=== PATIENT | male | born 1995 | race African-American/Black ===

== ENCOUNTER 2018-05-09 19:02 | Emergency (ER) | payer OTHER ==
[2018-05-09 19:13] VITALS: BP 130/80; PULSE 88; TEMP 98; BMI 19.5
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
[2018-05-09] MEDS ORDERED: METHOCARBAMOL 500 MG TABLET PO ONE (20:45)
[2018-05-09] MEDS ORDERED: ACETAMINOPHEN 325 MG TABLET (FP) PO ONE (20:45)
[2018-05-09 21:39] LABS: URINE APPEARANCE CLEAR; URINE BILIRUBIN NEGATIVE (<2.0 mg/dL); URINE COLOR YELLOW; URINE GLUCOSE (UA) NEGATIVE (NEGATIVE); URINE KETONE TRACE (NEGATIVE); URINE LEUK ESTERASE NEGATIVE (NEGATIVE); URINE NITRITE NEGATIVE (NEGATIVE); URINE PROTEIN NEGATIVE (NEGATIVE); URINE UROBILINOGEN NEGATIVE mg/dL (0.2-1.0)
[2018-05-09] MEDS ORDERED: METHOCARBAMOL 500 MG TABLET ONE (21:56)
[2018-05-09] MEDS ORDERED: ACETAMINOPHEN 325 MG TABLET (FP) ONE (21:56)
[2018-05-09] MEDS ORDERED: IBUPROFEN 600 MG TABLET (FP) PO ONE ×2 (22:26→23:00)
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
== END 2018-05-09 23:05 | disposition home or self-care (01) ==
LOC: JER 19:02
DX: M54.2 Cervicalgia (principal); M54.9 Dorsalgia, unspecified; M25.511 Pain in right shoulder; V43.62XA Car passenger injured in collision with other type car in traffic accident, initial encounter; Y93.89 Activity, other specified; Y92.410 Unspecified street and highway as the place of occurrence of the external cause
CPT/HCPCS: 72125-TC; 72128-TC; 72131-TC; 73030-TC-LT-FY; 73030-TC-RT-FY; 81003; 99282-25